=== PATIENT | female | born 1965 | race Asian ===

== ENCOUNTER 2017-01-21 10:16 | Outpatient (CLI) | payer BC, OTHER | END 2017-01-21 11:20 | disposition home or self-care (01) | LOC: LABW 10:16 | DX: M10.072 Idiopathic gout, left ankle and foot (principal) | CPT/HCPCS: 36415; 84550; 85651 ==

== ENCOUNTER 2019-02-18 12:02 | Outpatient (CLI) | payer OTHER, BC ==
[2019-02-18 12:46] LABS: PLATELET COUNT 295 K/uL (152-353)
[2019-02-18 12:59] LABS: POTASSIUM 3.8 mmol/L (3.6-5.2)
== END 2019-02-18 21:01 | disposition home or self-care (01) ==
LOC: LABW 12:02
PROVIDERS: Nurse Practitioner Family
DX: G47.8 Other sleep disorders (principal); M79.7 Fibromyalgia; R53.83 Other fatigue; Z79.899 Other long term (current) drug therapy
CPT/HCPCS: 36415; 80053; 85027; 85651; 86140